=== PATIENT | female | born 1965 | race Caucasian/White ===

== ENCOUNTER 2023-08-27 12:46 | Outpatient (REF) | payer OTHER, SELFPAY ==
[2023-08-27 14:54] LABS: Anion Gap 10.6 mmol/L (3-11); BUN 14 mg/dL (7-18); CO2 28.4 mmol/L (21.0-32.0); CREATININE 0.9 mg/dL (0.55-1.02); Calcium 9.4 mg/dL (8.5-10.1); Calculated LDL 189 mg/dL (<100); Chloride 105 mmol/L (98-107); Cholesterol 267 mg/dL (<200); Glucose 109 mg/dL (74-106); HDL Cholesterol 58 mg/dL (40-60); Potassium 4.3 mmol/L (3.5-5.1); Sodium 144 mmol/L (136-145); Triglyceride 102 mg/dL (<150)
== END 2023-08-27 12:47 | disposition home or self-care (01) ==
LOC: NCHCN 12:46
PROVIDERS: PCP Family Medicine; Visit Provider Family Medicine
DX: E66.3 Overweight (principal); N39.0 Urinary tract infection, site not specified
CPT/HCPCS: 80048; 80061; 87086

== ENCOUNTER 2023-12-03 12:50 | Outpatient (REF) | payer OTHER, SELFPAY ==
--- NOTE | 2023-12-03 10:00 | PAPFT_PTH ---
PATIENT: Lissa Boykin LOC: [facility]#:[id number] AGE/SX: 58/F ROOM: RE12/03/[address]: Ronna Neil : 1965 BED: DIS: 12/03/2023 SPEC #: [id number] RECD: 12/03/23 17:25 STATUS: LIZ REMyra #: [id number] QUINTIN: 12/03/23 10:[address]: Ronna Neil DEPT: [facility] Cytology RECD BY: Shireen Walton Tissues: 1 - CX/ENDOCX FOR PAP SMEARS Procedures: PAP THIN PREP/[facility] Screening HPV DNA PROBE Comments: [id number] (HPV 16 & 18/45)
[2023-12-03 15:35] LABS: Anion Gap 10.6 mmol/L (3-11); BUN 12 mg/dL (7-18); CO2 27.4 mmol/L (21.0-32.0); CREATININE 0.8 mg/dL (0.55-1.02); Calcium 9.3 mg/dL (8.5-10.1); Calculated LDL 183 mg/dL (<100); Chloride 104 mmol/L (98-107); Cholesterol 266 mg/dL (<200); Estimated GFR 86.42 (mL/min/1.73m2); Glucose 100 mg/dL (74-106); HDL Cholesterol 56 mg/dL (40-60); Potassium 4.1 mmol/L (3.5-5.1); Sodium 142 mmol/L (136-145); Triglyceride 139 mg/dL (<150)
== END 2023-12-03 12:51 | disposition home or self-care (01) ==
LOC: NCHCN 12:50
PROVIDERS: PCP Family Medicine; Visit Provider Family Medicine
DX: E78.2 Mixed hyperlipidemia (principal); Z12.4 Encounter for screening for malignant neoplasm of cervix; Z11.51 Encounter for screening for human papillomavirus (HPV)
CPT/HCPCS: 80048; 80061; 88142; 87624

== ENCOUNTER 2024-05-16 16:19 | Outpatient (REF) | payer OTHER, SELFPAY ==
[2024-05-16 16:10] LABS: Calculated LDL 100 mg/dL (<100); Cholesterol 183 mg/dL (<200); HDL Cholesterol 61 mg/dL (40-60); Triglyceride 114 mg/dL (<150)
== END 2024-05-16 16:20 | disposition home or self-care (01) ==
LOC: NCHCN 16:19
PROVIDERS: PCP Family Medicine; Visit Provider Family Medicine
DX: E78.5 Hyperlipidemia, unspecified (principal)
CPT/HCPCS: 80061

== ENCOUNTER 2024-12-19 13:17 | Outpatient (REF) | payer OTHER, SELFPAY ==
[2024-12-19 15:53] LABS: ALT 23 U/L (14-59); AST 19 U/L (15-37); Albumin 4.1 g/dL (3.4-5.0); Alkaline Phosphatase 61 U/L (46-116); Anion Gap 5.9 mmol/L (3-11); BUN 14 mg/dL (7-18); Bilirubin, Total 0.5 mg/dL (0.2-1.0); CO2 30.1 mmol/L (21.0-32.0); Calcium 8.9 mg/dL (8.5-10.1); Chloride 106 mmol/L (98-107); Estimated GFR 85.89 (mL/min/1.73m2); Glucose 98 mg/dL (74-106); Potassium 4.2 mmol/L (3.5-5.1); Sodium 142 mmol/L (136-145); Total Protein 7.1 g/dL (6.4-8.2)
[2024-12-20 10:00] LABS: HIV-1/2 Ag & Ab Screen Negative (Negative)
[2024-12-20 15:58] LABS: Hepatitis C Ab w Rflx HCV PCR Negative (Negative)
== END 2024-12-19 13:18 | disposition home or self-care (01) ==
LOC: NCHCN 13:17
PROVIDERS: PCP Family Medicine; Visit Provider Family Medicine
DX: E78.5 Hyperlipidemia, unspecified (principal); Z11.4 Encounter for screening for human immunodeficiency virus [HIV]; Z11.59 Encounter for screening for other viral diseases
CPT/HCPCS: 80053; 86803; 87389